=== PATIENT | male | born 1990 | race Caucasian/White ===

== ENCOUNTER 2018-11-22 15:16 | Emergency (ER) | payer SELFPAY ==
[2018-11-22] MEDS: DEXAMETHASONE 10 MG/ML 1 ML INJ IM (16:01)
== END 2018-11-22 17:30 | disposition home or self-care (01) ==
LOC: FTE 15:16
DX: M54.41 Lumbago with sciatica, right side (principal)
CPT/HCPCS: 72100; 96372; 99284-25